=== PATIENT | male | born 1945 | race Caucasian/White ===

== ENCOUNTER 2021-10-17 09:50 | Outpatient (CLI) | payer OTHER, SELFPAY ==
[2021-10-17 10:26] LABS: Anion Gap 12 mmol/L (8-16); Blood Urea Nitrogen 15 mg/dL (9-20); Calcium 9.3 mg/dL (8.4-10.2); Carbon Dioxide 28 mmol/L (22-30); Chloride 100 mmol/L (98-107); Estimated Glomerular Filt Rate > 60; Glucose 214 mg/dL (65-110); Potassium 4.3 mmol/L (3.4-5.0); Sodium 140 mmol/L (137-145)
== END 2021-10-17 09:51 | disposition home or self-care (01) ==
PROVIDERS: Anesthesiology; PCP Family Medicine; Visit Provider Plastic Surgery
DX: E11.9 Type 2 diabetes mellitus without complications (principal); Z01.818 Encounter for other preprocedural examination
CPT/HCPCS: 36415; 80048

== ENCOUNTER 2021-10-19 02:16 | Day surgery (SDC) | payer OTHER, SELFPAY ==
[2021-10-16 10:51] VITALS: BMI 26.3
--- NOTE | 2021-10-16 11:04 | PC.NURSE ---
Report to the Outpatient Waiting Room, entrance under the green pavilion located off [facility], at time _0600_ on date _10/19/21_. OR Time: _0730_. - You and your visitor will be asked to self-screen and do not enter if you have any COVID symptoms. - Only one visitor and NO children visitors are allowed at this time. - The patient visitor is requested to leave or wait in car when not with patient due to restrictions. - A mask is required within the hospital. Patients may have clear liquids (water, carbonated beverages, clear teas, apple juice) until 3 hours prior to surgery (0430 AM) with a maximum of 20 ounces. - No food from midnight until time of surgery Take the following medications with a SIP of water the morning of surgery: _LEVOTHYROXINE_ Medications to discontinue per physician ___N/A , Date to take last dose Please no make-up, nail greenlandic, hairspray, perfume, deodorant, or body powder the day of surgery. No jewelry (including any body piercings) or valuables the day of surgery, leave them at home. Please take a shower or bath the night before, or the morning of, surgery with an antibacterial soap. Wear comfortable, loose fitting clothing. - Jewelry must be removed prior to entering the operating room. Rings and piercings that are not removed may be cut off. - The hospital will not accept responsibility for valuables. - Please leave all valuables, including medications, at home the day of surgery. If you are going home after surgery, a licensed laborer driver must drive you home. - NO public transportation without another adult. - We recommend that an adult stay with you for 24 hours following discharge. - We also recommend that you do not drive, make important decision, drink alcoholic beverages, or take any drugs that were not prescribed by your health care provider for at least 24 hours after your discharge time. Follow any additional instructions given to you from your surgeon. If you or anyone in your household have experienced Covid symptoms in the past week, please notify your surgeon or the nurse liaison at the phone number below for possible testing. Telephone instructions given to ____PT and asked if any additional questions and then verbalized understanding. Patient advised to call surgeon office or pre surgery nurse liaison [phone] if any additional questions.
[2021-10-19 06:21] VITALS: BP 160/93; PULSE 70; RESP 16; TEMP 36.2; O2SAT 99
[2021-10-19 07:02] LABS: Glucose Point of Care 103 mg/dl (65-105)
--- NOTE | 2021-10-19 07:02 | WPDANESEPPF ---
Anes - Initial Pre Proc Eval Procedure: Operation Date: 10/19/21 07:30 Proposed Procedures p Excision of Basal Cell Carcinoma of Nasal Bridge with Frozen Section - Jerad Drew MD Date/Time: 10/19/21 07:02 Surgeon: Jerad Drew MD Pre Op Diagnosis: basal cell carcinoma of nasal bridge Patient Data Age: 76 Gender: M Height: 1.78 m Weight: 84.7 kg Allergies Allergy/AdvReac Type Severity Reaction Status Date / Time No Known Allergies Allergy Verified 10/19/21 06:47 Home Medications Medication Instructions Recorded Confirmed Type flash glucose scanning reader #1 ea 05/06/20 06/22/21 Rx (FreeStyle Zandra 2 [place]) pen needle, diabetic 32 gauge x See Rx Instructions .Route 11/23/20 10/16/21 Rx /32 (BD Alejandra 2nd Gen Pen Needle) .COMPLEX #100 ea levothyroxine 88 mcg tablet 88 mcg PO DAILY #90 tabs 02/09/21 10/19/21 Rx empagliflozin 25 mg tablet See Rx Instructions .Route 06/12/21 10/19/21 Rx (Jardiance) .COMPLEX #90 tabs atorvastatin 10 mg tablet 10 mg PO DAILY #90 tabs 06/22/21 10/19/21 Rx gabapentin 300 mg capsule 300 mg PO DAILY 06/22/21 10/19/21 History meloxicam 15 mg tablet 15 mg PO DAILY 06/22/21 10/19/21 History flash glucose sensor (FreeStyle See Rx Instructions .Route 06/26/21 10/16/21 Rx Zandra 2 Sensor kit) .COMPLEX #4 kits metformin 500 mg tablet,extended See Rx Instructions .Route 09/06/21 10/19/21 Rx release 24 hr .COMPLEX #180 tabs insulin glargine 100 unit/mL (3 22 unit (0.22 mL) subcut QPM #15 mL 09/27/21 10/19/21 Rx mL) subcutaneous pen (Lantus Solostar U-100 Insulin) Laboratory Tests 10/19/21 06:59 POC Capillary Glucose 103 mg/dl mg/dl (65-105) Patient hx anesthesia problems: none Family hx anesthesia problems: none Results Review: All pre-operative results and documents have been reviewed as part of the pre-operative evaluation. [facility] Past Medical History Medical History Left inguinal hernia Laparoscopic left inguinal hernia repair with mesh, Tiffanie assisted - 12/10/2018 Nodular basal cell carcinoma Surgical History Surgical History Status post left inguinal hernia repair Social History Social History Second hand tobacco smoke exposure: No Additional smoking assessment comments: Rarely Alcohol intake: current Drinks per week: 2 Alcohol use details: STATES 1-2/MONTH Substance use: never Substance use type: does not use Living arrangements: with family Gender identity (if verbalized by the patient): Male Spiritual care concerns: No Anes - Eval Final PreProcedure Day of Procedure 10/19/21 07:02 Heart: regular rate and rhythm Lungs: clear to auscultation and normal air movement Airway: Mallampati scale Neurological: alert and oriented ASA classification: III Anesthetic plan: proceed Anesthesia type and monitoring: general and standard monitoring Results Review: All pre-operative results and documents have been reviewed as part of the pre-operative evaluation. Informed Consent: The patient's anesthetic plan and its attendant risks and benefits were discussed with the patient/family/POA. Questions were solicited and answers provided to the satisfaction of the patient/family/POA.
--- NOTE | 2021-10-19 07:07 | WPDANESEPPF ---
Anes - Initial Pre Proc Eval Procedure: Operation Date: 10/19/21 07:30 Proposed Procedures p Excision of Basal Cell Carcinoma of Nasal Bridge with Frozen Section - Jerad Drew MD Date/Time: 10/19/21 07:07 Surgeon: Jerad Drew MD Pre Op Diagnosis: basal cell carcinoma of nasal bridge Patient Data Age: 76 Gender: M Height: 1.78 m Weight: 84.7 kg Last Vital Signs Temp 97.2 F L 10/19/21 06:21 Pulse 70 10/19/21 06:21 Resp 16 10/19/21 06:21 BP 160/93 H 10/19/21 06:21 Pulse Ox 99 10/19/21 06:21 O2 Del Method Room Air 10/19/21 06:21 Allergies Allergy/AdvReac Type Severity Reaction Status Date / Time No Known Allergies Allergy Verified 10/19/21 06:47 Home Medications Medication Instructions Recorded Confirmed Type flash glucose scanning reader #1 ea 05/06/20 06/22/21 Rx (FreeStyle Zandra 2 [place]) pen needle, diabetic 32 gauge x See Rx Instructions .Route 11/23/20 10/16/21 Rx /32 (BD Alejandra 2nd Gen Pen Needle) .COMPLEX #100 ea levothyroxine 88 mcg tablet 88 mcg PO DAILY #90 tabs 02/09/21 10/19/21 Rx empagliflozin 25 mg tablet See Rx Instructions .Route 06/12/21 10/19/21 Rx (Jardiance) .COMPLEX #90 tabs atorvastatin 10 mg tablet 10 mg PO DAILY #90 tabs 06/22/21 10/19/21 Rx gabapentin 300 mg capsule 300 mg PO DAILY 06/22/21 10/19/21 History meloxicam 15 mg tablet 15 mg PO DAILY 06/22/21 10/19/21 History flash glucose sensor (FreeStyle See Rx Instructions .Route 06/26/21 10/16/21 Rx Zandra 2 Sensor kit) .COMPLEX #4 kits metformin 500 mg tablet,extended See Rx Instructions .Route 09/06/21 10/19/21 Rx release 24 hr .COMPLEX #180 tabs insulin glargine 100 unit/mL (3 22 unit (0.22 mL) subcut QPM #15 mL 09/27/21 10/19/21 Rx mL) subcutaneous pen (Lantus Solostar U-100 Insulin) Laboratory Tests 10/19/21 06:59 POC Capillary Glucose 103 mg/dl mg/dl (65-105) Patient hx anesthesia problems: none Family hx anesthesia problems: none Results Review: All pre-operative results and documents have been reviewed as part of the pre-operative evaluation. [facility] Past Medical History Medical History Left inguinal hernia Laparoscopic left inguinal hernia repair with mesh, Tiffanie assisted - 12/10/2018 Nodular basal cell carcinoma Surgical History Surgical History Status post left inguinal hernia repair Social History Social History Second hand tobacco smoke exposure: No Additional smoking assessment comments: Rarely Alcohol intake: current Drinks per week: 2 Alcohol use details: STATES 1-2/MONTH Substance use: never Substance use type: does not use Living arrangements: with family Gender identity (if verbalized by the patient): Male Spiritual care concerns: No Anes - Eval Final PreProcedure Day of Procedure 10/19/21 07:07 Patient weight: normal Heart: regular rate and rhythm Lungs: clear to auscultation Airway: Mallampati scale class II Neurological: alert and oriented Last oral intake: >/= 8 hours ASA classification: III Emergent: no Anesthetic plan: proceed Anesthesia type and monitoring: general GIVS and standard monitoring Results Review: All pre-operative results and documents have been reviewed as part of the pre-operative evaluation. Informed Consent: The patient's anesthetic plan and its attendant risks and benefits were discussed with the patient/family/POA. Questions were solicited and answers provided to the satisfaction of the patient/family/POA.
--- NOTE | 2021-10-19 07:12 | WPDHPUPDATE1 ---
History and Physical Update Update Date/Time: 10/19/21 07:12 History and Physical has been reviewed, including an updated exam of the patient. There are NO changes in the patient's condition. Risks, benefits, and alternatives have been discussed and questions answered. Patient agrees to proceed with procedure.
[2021-10-19] MEDS: LACTATED RINGERS 1,000 ML 30 ML IV CONT (07:25)
[2021-10-19] MEDS: BACITRACIN OINTMENT 15 GM TUBE 1 APPLIC TOPICAL (07:30)
[2021-10-19] MEDS: LIDO 1%/EPINEPHRINE 1:100,000 50 ML VIAL 8 ML INFILTRATE (07:30)
[2021-10-19 08:38] VITALS: BP 162/85; PULSE 66; RESP 14; O2SAT 98
[2021-10-19 08:49] LABS: Glucose Point of Care 109 mg/dl (65-105)
--- NOTE | 2021-10-19 08:55 | P.OP_ITS ---
Procedure Note - Detailed Date of Procedure 10/19/21 Pre-op Diagnosis basal cell carcinoma of nasal bridge Post-op Diagnosis Same Procedure Performed 1 cm excision of basal cell carcinoma of the nasal bridge with frozen section and complex repair 4 cm Surgeon Jerad Drew MD Pull Out Operator Aubrie Anesthesia MAC Indications Biopsy Findings Residual basal cell carcinoma with a margins free Description of Procedure The site on the nasal bridge was marked with the patient's consent in the holding area. He was then taken to the operating room where he was placed supine on the operating table. He was given IV sedation as the face was prepped and draped in usual fashion. A time-out was held and confirmed. The site was carefully marked for the initial incision. The region was locally infiltrated with 1% lidocaine with epinephrine.. The oval ellipse was excised into the subcutaneous tissue. It was tagged at the superior aspect for 12:00 o'clock and sent for frozen section. The pathologist revealed the presence of basal cell carcinoma with free margins per The skin margins were undermined least a cm in all directions and standing cones removed distally and proximally. The wound with tailored and closed intradermal 4-0 Vicryl sutures approximating the wound margins. The skin was closed with a running 5 0 nylon tolerated well. The patient is being discharged home with instructions in wound care and follow- up and a prescription for cephalexin 500 mg t.i.d. 15. He will be taking ibuprofen or Tylenol as needed for pain control Estimated Blood Loss -5.0 Drains No Packing No Pathology Yes Complications No immediate complications Condition Stable Disposition Same day
[2021-10-19 09:00] VITALS: BP 152/85; PULSE 61; RESP 14; O2SAT 97
[2021-10-19 09:30] VITALS: BP 157/83; PULSE 71; RESP 14; O2SAT 97
== END 2021-10-19 09:49 | disposition home or self-care (01) ==
PROVIDERS: PCP Family Medicine; Visit Provider Plastic Surgery
PROC: (CPT 11641; principal; 2021-10-19 07:30)
DX: C44.311 Basal cell carcinoma of skin of nose (principal); E11.9 Type 2 diabetes mellitus without complications; Z79.84 Long term (current) use of oral hypoglycemic drugs; Z79.4 Long term (current) use of insulin
CPT/HCPCS: 11641; 13152; 36415; 80048; 82948; 88305; 88331; A9270; J2250; J2704; J7120